=== PATIENT | male | born 1990 | race Caucasian/White ===

== ENCOUNTER 2019-11-24 16:28 | Emergency (ER) | payer OTHER ==
[~2019-11-24] VITALS: Ht 172.7 cm; Wt 102.1 kg
[~2019-11-24 16:28] MED LIST: MEDROLDOSEPACK PO; MOBIC7.5 MG PO; OMEPRAZOLE 20 M20 M1 PO; TRAZODONE HCL50 MG PO
[2019-11-24] MEDS ORDERED: KEPPRA 500 MG500 MG PO (16:44)
[2019-11-24 17:06] LABS: ABSOLUTE EOSINOPHILS 0.1 thou/uL (0.0-0.7); ABSOLUTE LYMPHOCYTES 1.3 thou/uL (0.8-5.3); ABSOLUTE MONOCYTES 0.5 thou/uL (0.0-1.2); ABSOLUTE NEUTROPHILS 5.8 thou/uL (1.6-8.1); BASOPHILS 0.5 %; EOSINOPHILS 1.8 %; HEMATOCRIT 42.6 % (42.0-52.0); HEMOGLOBIN 14.8 gm/dL (14.0-18.0); LYMPHOCYTES 16.1 %; MCH 31.5 pg (26.0-34.0); MCHC 34.8 g/dL (28.0-37.0); MCV 90.4 fL (80.0-100.0); MONOCYTES 6.6 %; MPV 7.5 fl. (7.2-11.1); NUCLEATED RBCS 0 /100WBC; PLATELET COUNT* 258 thou/uL (150-400); RBC 4.71 mil/uL (4.50-6.00); RDW-CV 13.4 % (10.5-14.5); WBC 7.8 thou/uL (4.0-11.0)
[2019-11-24 17:15] LABS: CALCIUM 8.3 mg/dL (8.5-10.1); CREATININE 1.1 mg/dL (0.6-1.3)
[2019-11-24 17:19] LABS: TOTAL BILIRUBIN 0.3 mg/dL (<0.1-1.0); TOTAL PROTEIN 7.1 g/dL (6.4-8.2)
[2019-11-24 17:43] LABS: URINE BILIRUBIN NEGATIVE (Negative); URINE BLOOD NEGATIVE (Negative); URINE CLARITY CLEAR; URINE COLOR YELLOW; URINE GLUCOSE-RANDOM NEGATIVE (Negative); URINE KETONES NEGATIVE (Negative); URINE LEUKOCYTES-REFLEX NEGATIVE (Negative); URINE NITRITE-REFLEX NEGATIVE (Negative); URINE PROTEIN NEGATIVE (Negative); URINE UROBILINOGEN 0.2 E.U./dl (0.2-1.0)
[2019-11-24] MEDS ORDERED: NABUMETONE 750750 M1 PO (19:50)
[2019-11-24] MEDS ORDERED: NORCO 5-325 TA1 EAC2 PO (19:50)
[2019-11-24 20:03] VITALS: BP 144/70
== END 2019-11-24 20:03 | disposition home or self-care (01) ==
LOC: M.ERS 16:28
PROVIDERS: Nurse Practitioner Family
DX: K63.89 Other specified diseases of intestine (principal); R10.31 Right lower quadrant pain